=== PATIENT | female | born 1975 | race American Indian/Alaskan Native ===

== ENCOUNTER 2016-09-30 11:42 | Emergency (ER) | payer OTHER ==
[2016-09-30 14:30] LABS: Urine Drugs of Abuse Note Disclamer
[2016-09-30 14:44] LABS: Basophils % (Auto) 1.4 % (0.0-1.8); Hemoglobin 10.3 gm/dl (10.1-14.3); Mean Corpuscular HGB Conc 31 % (30-34); Mean Corpuscular Volume 75 fl (79-97); Platelet Count 431 K/mm3 (140-440); Red Blood Count 4.39 M/mm3 (3.65-5.03); White Blood Count 5.8 K/mm3 (4.5-11.0)
[2016-09-30 14:45] LABS: Mean Corpuscular Hemoglobin 24 pg (28-32); Red Cell Distribution Width 20.9 % (13.2-15.2)
--- NOTE | 2016-09-30 14:47 | Emergency Department Report ---
HPI - General Chief Complaint: Psych Time Seen by Provider: 09/30/16 12:00 - HPI HPI: Chief complaint: Possible Intoxication HPI: Patient was brought in by EMS after the police were called because the patient was yelling at employees in a store. Patient states she has been drinking. Mode of arrival: [EMS] Source: [Patient] EMS and nursing notes Began: Unable to assess further this patient is not forthcoming with answers to my questions. ED Past Medical Hx - Past Medical History Additional medical history: Unknown - Surgical History Additional Surgical History: Unknown - Social History Smoking Status: Unknown if ever smoked ED Review of Systems ROS: Stated complaint: ETOH Other details as noted in HPI Comment: Unobtainable due to pts medical conditions (apparent intoxication) Physical Exam - Physical Exam Vital Signs: Vital Signs 09/30/16 09/30/16 12:02 13:30 Temperature 98.3 F Pulse Rate 110 H Respiratory 24 20 Rate Blood Pressure 140/84 O2 Sat by Pulse 98 98 Oximetry Physical Exam: GENERAL: The patient is well-developed well-nourished . On my arrival to the room the patient has her pants pulled down to her ankles is squatting in the corner and urinating on the floor. With some coaxing patient was able to stand up and pull her pants up on her own and lay on the stretcher. Occasional misstep while walking. Patient does admit to drinking alcohol but further questioning elicits a stream of expletives. HEENT: Normocephalic. Atraumatic. Extraocular motions are intact. Patient has moist mucous membranes. NECK: Supple. No meningitic signs are noted. There is no adenopathy noted. CHEST/LUNGS: Clear to auscultation. There is no respiratory distress noted. HEART/CARDIOVASCULAR: Regular. There is no tachycardia. There is no gallop rub or murmur. ABDOMEN: Abdomen is soft, nontender. Patient has normal bowel sounds. There is no abdominal distention. SKIN: There is no rash. There is no edema. There is no diaphoresis. NEURO: The patient is awake, alert. The patient is able to ambulate and moves all extremities. MUSCULOSKELETAL: There is no tenderness or deformity. There is no limitation range of motion. There is no evidence of acute injury. ED Course Vital Signs 09/30/16 09/30/16 12:02 13:30 Temperature 98.3 F Pulse Rate 110 H Respiratory 24 20 Rate Blood Pressure 140/84 O2 Sat by Pulse 98 98 Oximetry - Reevaluation(s) Reevaluation #1: 09/30/16 Patient is placed on temporary 1013 until further assessment can be done to determine the cause of her apparent intoxication. 09/30/16 15:37 Patient's initial blood work comes back negative for alcohol and drugs. Patient is now more cooperative and states she had 2 drinks this morning and that she has been depressed. Patient is still at times verbally aggressive but at least will interact. Patient does not show much insight. Mental health crisis who had attempted to evaluate earlier is returning to evaluate again. Mental health crisis recommends continuing the 1013 for acute psychosis. ED Medical Decision Making - Lab Data Result diagrams: 09/30/16 12:59 09/30/16 12:59 Laboratory Tests 09/30/16 13:52 Urine HCG, Qual Negative Laboratory Tests 09/30/16 14:22 Plasma/Serum Alcohol < 0.01 Urinalysis and UDS within normal limits. - Radiology Data Radiology results: pending (CT head is pending) Critical care attestation.: If time is entered above; I have spent that time in minutes in the direct care of this critically ill patient, excluding procedure time. ED Disposition Clinical Impression: Acute psychosis Disposition: DC/TX PSY HOSP/PSY UNIT Is pt being admited?: No Does the pt Need Aspirin: No Condition: Serious Referrals: PRIMARY CARE, [Primary Care Provider] - 3-5 Days Time of Disposition: 16:47
[2016-09-30 14:56] LABS: Anion Gap 22 mmol/L; BUN/Creatinine Ratio 8.33; Blood Urea Nitrogen 5 mg/dL (7-17); Calcium 8.1 mg/dL (8.4-10.2); Carbon Dioxide 20 mmol/L (22-30); Chloride 106.1 mmol/L (98-107); Glucose 88 mg/dL (65-100); Potassium 3.8 mmol/L (3.6-5.0); Sodium 144 mmol/L (137-145)
[2016-09-30 15:15] LABS: Bilirubin,Urine NEG (Negative); Blood,Urine NEG (Negative); Ketones,Urine NEG (Negative); Leukocyte Esterase,Urine NEG (Negative); Nitrite,Urine NEG (Negative); Protein,Urine <15 mg/dL mg/dL (Negative); Urobilinogen,Urine < 2.0 mg/dL (<2.0); WBC,Urine < 1.0 /HPF (0.0-6.0)
[2016-09-30] MEDS ORDERED: HALDOL IM PRN (16:32)
[2016-09-30] MEDS ORDERED: BENADRYL IM PRN (16:32)
[2016-09-30] MEDS ORDERED: ATIVAN IM PRN (16:33)
--- NOTE | 2016-09-30 17:08 | Cat Scan Report ---
FINAL REPORT EXAM: CT HEAD/BRAIN WO CON HISTORY: ams TECHNIQUE: CT head without contrast PRIORS: None. FINDINGS: No acute intra-axial or extra-axial hemorrhage is identified. There is no evidence of midline shift or mass effect. The ventricles and sulci are within normal limits. Shafer-white matter differentiation is intact. No acute parenchymal abnormalities seen. Bony calvarium is grossly intact. There is increased density with fluid level in the left maxillary sinus which is only partially visualized. There is some increased density right and left ethmoid air cells. IMPRESSION: No acute intracranial findings. Findings most consistent with sinusitis likely acute
--- NOTE | 2016-09-30 18:53 | Consultation ---
History of Present Illness - Reason for Consult Reason for consult: psych management - Chief Complaint Chief complaint: "40 year old BF with unknown prior psych history. Patient was brought in by police for disruptive behaviors at [employer] per the patient. She notes that she was on her way to work where she got into an argument with a homeless individual while stopping at [employer] to drink ETOH. Afterwards police showed up and took her to the ER because, "I'm black, they took it the wrong way." " My ETOH levels are normal- why am I here." Patient denies any SI/HI/AH/VH. Patient also says she isn't paranoid and she notes that she has no mental health problems. She denies any depression or euphoria. She denies any etoh or illicit drugs. Despite the patient noting that she has nothing wrong with her, her behaviors are indicative of paranoia. During the interview she has refused to answer many of various provider's questions. To me she said "I'm not giving you anything." When asked why the hostility towards us she responded, "you pissed me off, with Ej Powell and me being in a padded room." During the interview patient wouldn't answer several questions- continually deferring to her statements of she was trying to get to work when this happened and why I would question her on her mental health. Patient would not collaborate after she became more paranoid with my questioning. Medications and Allergies Allergies Allergy/AdvReac Type Severity Reaction Status Date / Time Unable to Assess Allergy Unverified 09/30/16 12:27 Active Meds: Active Medications Diphenhydramine HCl (Benadryl) 25 mg IM ONCE PRN PRN Reason: Agitation Haloperidol Lactate (Haldol) 5 mg IM ONCE PRN PRN Reason: Agitation Lorazepam (Ativan) 1 mg IM ONCE PRN PRN Reason: Agitation Past psychiatric history - Past Medical History Past Surgical History: No surgical history - past Psychiatric treatment and history Psych: Psychosis psychiatric treatment history: Inpt: none Outpt: none Suicide attempt: none per patient - Social History Social history: other (patient states that she lives alone in [place], then said she lives in [facility], she states that she works in [place], no family support, no or children. unknown education history, denies any abuse) Mental Status Exam - Vital signs Last Vital Signs Temp 98 F 09/30/16 17:09 Pulse 80 09/30/16 17:09 Resp 16 09/30/16 17:09 BP 129/97 09/30/16 17:09 Pulse Ox 9 L 09/30/16 17:09 - Exam Orientation: time, place, person Affect: agitated Mood: anxious Thought content: delusions, paranoia Thought Process: Circumstantial, Tangential Perceptions: none Speech: pressured Concentration: distractible Motor activity: restless Level of consciousness: alert Memory: Intact Interaction: irritable Results Result Diagrams: 09/30/16 12:59 09/30/16 12:59 Abnormal lab results 09/30/16 09/30/16 09/30/16 Range/Units 12:59 12:59 13:52 MCV 75 L (79-97) fl MCH 24 L (28-32) pg RDW 20.9 H (13.2-15.2) % Lymph % (Auto) 53.0 H (13.4-35.0) % [place] % (Auto) 8.1 H (0.0-7.3) % Seg Neutrophils % 36.5 L (40.0-70.0) % Carbon Dioxide 20 L (22-30) mmol/L BUN 5 L (7-17) mg/dL Creatinine 0.6 L (0.7-1.2) mg/dL Calcium 8.1 L (8.4-10.2) mg/dL Ur Specific Beals 1.002 L (1.003-1.030) All other labs normal. Assessment and Plan Assessment and plan: "40 year old BF with unknown prior psych history. Patient was brought in by police for disruptive behaviors at [facility] per the patient. Patient notes that she has no mental history and this is a misunderstanding. However, pt's actions have not suggested that this is accurate. Her behaviors in the ER have been paranoid/delusional. 1: psychosis- rec to start Risperdal 1mg po qhs for psychosis, cogentin 0.5 mg po qhs for EPS. 2. will need to obtain collateral to determine her baseline- once determine we can treat the proper issue and determine the best dispo for this patient. - Psychiatric problem (1) Acute psychosis Current Visit: Yes Status: Acute
[2016-09-30] MEDS: RisperDAL PO SCH (23:03)
[2016-09-30] MEDS: COGENTIN PO SCH (23:03)
--- NOTE | 2016-10-01 13:33 | Emergency Department Report ---
Blank Doc - Documentation Documentation: Vital Signs - 24 hr 09/30/16 10/01/16 17:09 07:40 Temperature 98 F 99 F Pulse Rate 80 92 H Respiratory 16 18 Rate Blood Pressure 129/97 144/103 [Left] O2 Sat by Pulse 9 L 98 Oximetry No events reported. Vital signs reviewed. Awaiting placement
--- NOTE | 2016-10-01 22:42 | Progress Note ---
Subjective - Reason for Consult Reason for consult: psych management - Chief Complaint Chief complaint: "40 year old BF with unknown prior psych history. Patient is less agitated today. She has tolerated the medication changes made and notes that she still feels it was a mistake coming to the hospital. She is able to better explain what brought her to the hospital. She continues to deny any SI/HI/AH/VH. She denies she is paranoid. She is more cooperative on the unit and is willing for us to obtain collateral to gain a better understanding of her baseline. Mental Status Exam - Vital signs Last Vital Signs Temp 99 F 10/01/16 07:40 Pulse 92 H 10/01/16 07:40 Resp 18 10/01/16 07:40 BP 144/103 10/01/16 07:40 Pulse Ox 98 10/01/16 07:40 - Exam Orientation: time, place, person Affect: normal Mood: calm Thought content: delusions, paranoia Thought Process: Intact Perceptions: none Speech: normal rate and pattern Concentration: distractible Motor activity: normal Level of consciousness: alert Memory: Intact Interaction: cooperative Assessment and Plan "40 year old BF with unknown prior psych history. Patient was brought in by police for disruptive behaviors at [facility] per the patient. Patient notes that she has no mental history and this is a misunderstanding. Her behaviors in the ER have been paranoid/delusional, but improved with medication administration. 1: psychosis- increase Risperdal 2mg po qhs for psychosis, cogentin 0.5 mg po qhs for EPS. 2. will need to obtain collateral to determine her baseline from felicitas Chandana- once determine we can treat the proper issue and determine the best dispo for this patient. - Patient Problems (1) Acute psychosis Current Visit: Yes Status: Acute
[2016-10-01] MEDS: COGENTIN PO SCH (22:43)
[2016-10-01] MEDS: RisperDAL PO SCH (22:52)
--- NOTE | 2016-10-02 16:52 | Emergency Department Report ---
Blank Doc - Documentation Documentation: Lab results and vital signs reviewed. Patient has remained, crying no intervention. Patient continues to a placement.
--- NOTE | 2016-10-02 18:50 | Progress Note ---
Subjective - Reason for Consult Reason for consult: psych management - Chief Complaint Chief complaint: "40 year old BF with unknown prior psych history. Patient has been moved to another room with a roommate. She has been calmer today and engaged in a proper conversation without resorting to any agitation. While her story has once again change slightly as to what she was doing to present here, she was able to describe the events that led her here in a more linear calm manner. She notes that she isn't paranoid. She denies any AH/VH/SI/HI. She denies any depression. She does states that she feels better with the medications that we are using. She understands that we are waiting for collateral to determine here baseline. Mental Status Exam - Vital signs Last Vital Signs Temp 99 F 10/02/16 07:10 Pulse 85 10/02/16 07:10 Resp 18 10/02/16 07:10 BP 121/89 10/02/16 07:10 Pulse Ox 100 10/02/16 07:10 - Exam Orientation: time, place, person Affect: normal Mood: calm Thought content: delusions, paranoia Thought Process: Intact Perceptions: none Speech: normal rate and pattern Concentration: distractible Motor activity: normal Level of consciousness: alert Memory: Intact Interaction: cooperative (less paranoia) Mini mental status exam(if necessary): 24-30 Assessment and Plan "40 year old BF with unknown prior psych history. Patient was brought in by police for disruptive behaviors at [facility] per the patient. 1: psychosis- continue Risperdal 2mg po qhs for psychosis, cogentin 0.5 mg po qhs for EPS. Her symptoms have greatly decreased. 2. will need to obtain collateral to determine her baseline from friend Chandana- - Patient Problems (1) Acute psychosis Current Visit: Yes Status: Acute
[2016-10-02] MEDS: COGENTIN PO SCH (21:56)
[2016-10-02] MEDS: RisperDAL PO SCH ×2 (21:56→21:59)
--- NOTE | 2016-10-03 08:36 | Progress Note ---
Subjective - Reason for Consult Reason for consult: psych management - Chief Complaint Chief complaint: "40 year old BF with unknown prior psych history. Patient is doing much better. She notes that she has been doing well. She has been calm on the unit. No SI/HI/AH/VH. She denies any paranoia. She notes that she feels good on the meds and ready for discharge. She has some goals that she wants to accomplish- namely getting work. Collateral from her contact she talked to today notes that she's at her baseline and he can come here to pick her up. Mental Status Exam - Vital signs Last Vital Signs Temp 98.8 F 10/02/16 19:42 Pulse 101 H 10/02/16 19:42 Resp 16 10/02/16 19:42 BP 122/91 10/02/16 19:42 Pulse Ox 98 10/02/16 19:42 - Exam Orientation: time, place, person Affect: normal Mood: appropriate, calm Thought Process: Circumstantial Perceptions: none Speech: normal rate and pattern Concentration: focused Motor activity: normal Level of consciousness: alert Memory: Intact Interaction: cooperative Mini mental status exam(if necessary): 24-30 Assessment and Plan "40 year old BF with unknown prior psych history. Patient was brought in by police for disruptive behaviors at [facility] per the patient. With the medications, the patient has returned back to her baseline per collateral. She is currently showing no signs of self harm or risk to others. 1: psychosis- continue Risperdal 2mg po qhs for psychosis, cogentin 0.5 mg po qhs for EPS. Her acute symptoms have resolved and she can discharge- rescind 1013.. 2. d/c to friend Chandana- - Patient Problems (1) Acute psychosis Current Visit: Yes Status: Acute
--- NOTE | 2016-10-03 20:03 | Event Note ---
Date: 10/03/16 Vital signs reviewed and appreciated. Psychiatric consultation is reviewed and appreciated. Psychiatry recommends 1013 be discontinued. The patient is not homicidal or suicidal. She has a GCS of 15, with an NIH score of 0. She is pleasant, calm and cooperative, and denies significant problems or complaints at this time. She reports that she is going to follow up at [place] for her psychiatric medication. She will be discharged at this time. Return precautions are extensively reviewed. Vital Signs 09/30/16 09/30/16 09/30/16 12:02 13:30 17:09 Temperature 98.3 F 98 F Pulse Rate 110 H 80 Respiratory 24 20 16 Rate Blood Pressure 140/84 Blood Pressure 129/97 [Left] O2 Sat by Pulse 98 98 9 L Oximetry 10/01/16 10/01/16 10/02/16 07:40 19:30 05:24 Temperature 99 F 99.4 F Pulse Rate 92 H 79 Respiratory 18 20 20 Rate Blood Pressure Blood Pressure 144/103 146/91 [Left] O2 Sat by Pulse 98 99 99 Oximetry 10/02/16 10/02/16 10/03/16 07:10 19:42 13:00 Temperature 99 F 98.8 F Pulse Rate 85 101 H Respiratory 18 16 16 Rate Blood Pressure Blood Pressure 121/89 122/91 [Left] O2 Sat by Pulse 100 98 98 Oximetry
[2016-10-03 21:39] VITALS: BP 137/100
== END 2016-10-03 20:15 | disposition home or self-care (01) ==
LOC: ED 11:42 → EEVIPCON 11:42 → ED 10-03 20:15
DX: F29 Unspecified psychosis not due to a substance or known physiological condition (principal)
CPT/HCPCS: 36415; 70450; 80048; 80307; 81001; 81025; 85025; 99284; G0480; 80320